=== PATIENT | male | born 1950 | race African-American/Black ===

== ENCOUNTER 2019-12-31 12:04 | Inpatient (IN) | payer SELFPAY ==
[~2019-12-31] VITALS: Ht 167.6 cm; Wt 63.2 kg
[2019-12-31] MEDS ORDERED: LEVETIRACETAM 1000MG/100ML 100 ML IV ONE (12:15)
[2019-12-31 12:25] LABS: HEMATOCRIT. 41.8 % (42.0-52.0); HEMOGLOBIN. 13.8 g/dL (14.0-18.0); MEAN CORPUSCULAR HEMOGLOBIN 34.4 pg (28.0-32.0); MEAN PLATELET VOLUME 9.8 fl (7.4-10.4); PLATELET 143 x1000/uL (130-400); RED BLOOD CELL COUNT 4.02 mill/uL (4.7-6.1); RED CELL DISTRIBUTION WIDTH 13.2 % (11.6-14.6)
[2019-12-31 12:33] LABS: CHLORIDE 102 mEq/L (98-107)
[2019-12-31 12:38] LABS: ETHANOL BLOOD < 10 mg/dL
[2019-12-31 12:42] LABS: CREATINE KINASE 396 IU/L (39-308); PLATELET ESTIMATE NORMAL
[2019-12-31] MEDS ORDERED: LORAZEPAM 2MG/ML CPJ ONE (12:56)
[2019-12-31 12:58] LABS: CARBAMAZEPINE < 0.5 ug/mL (4-12); PHENOBARBITAL < 2.1 ug/mL (15.0-40.0); VALPROIC ACID < 3.0 ug/mL (50-100)
[2019-12-31 13:57] LABS: CLARITY URINE CLEAR (CLEAR); COLOR URINE YELLOW (YELLOW); KETONES URINE NEGATIVE (NEGATIVE); LEUKOCYTE ESTERASE URINE NEGATIVE (NEGATIVE); NITRITE URINE NEGATIVE (NEGATIVE); OCCULT BLOOD URINE TRACE (NEGATIVE); PH URINE 5.5 (4.5-8.0); PROTEIN URINE 1+ (NEGATIVE); SPECIFIC GRAVITY URINE 1.031 (1.005-1.030); UROBILINOGEN URINE 0.2 E.U./dL (0.2-1.0)
[2019-12-31] MEDS ORDERED: IOHEXOL-350 100 ML BOTTLE ONE (13:58)
[2019-12-31 14:11] LABS: *AMPHETAMINES SCREEN URINE NEGATIVE (NEGATIVE)
[2019-12-31 14:12] LABS: *BARBITURATES SCREEN URINE NEGATIVE (NEGATIVE); *BENZODIAZEPINES SCREEN URINE PRESUMTIVE POSITIVE (NEGATIVE); *COCAINE SCREEN URINE NEGATIVE (NEGATIVE); CANNABINOID URINE SCREEN NEGATIVE (NEGATIVE); METHADONE URINE SCREEN NEGATIVE (NEGATIVE); OPIATES URINE SCREEN NEGATIVE (NEGATIVE); PHENCYCLIDINE URINE SCREEN NEGATIVE (NEGATIVE)
[2019-12-31] MEDS ORDERED: LORAZEPAM 2MG/ML CPJ IV ONE (14:30)
[2019-12-31] MEDS ORDERED: HYDRALAZINE 20MG/ML VIAL IV SCH (15:15)
[2019-12-31] MEDS ORDERED: NALOXONE HCL 1 MG/ML 2ML VIAL IV SCH (15:15)
[2019-12-31] MEDS ORDERED: LORAZEPAM 2MG/ML CPJ IV PRN (20:45)
[2019-12-31 21:00] VITALS: BP 150/83
[2019-12-31 21:30] VITALS: BP 150/83
[2019-12-31] MEDS ORDERED: GUAIFENESIN 200MG/10ML SUGAR FREE UDC PO PRN (22:00)
[2019-12-31] MEDS ORDERED: IPRATROPIUM/ALBUTEROL 0.5-3(2.5)MG/3ML NEB HHN PRN (22:00)
[2019-12-31] MEDS ORDERED: HYDRALAZINE 20MG/ML VIAL IV PRN (22:00)
[2019-12-31] MEDS ORDERED: MORPHINE SULFATE 2 MG/ML CPJ (NOT FOR IM USE) IV PRN (22:00)
[2019-12-31] MEDS ORDERED: DIPHENHYDRAMINE 50MG/ML VIAL IV PRN (22:00)
[2019-12-31] MEDS ORDERED: ONDANSETRON HCL 4MG/2ML INJ IV PRN (22:00)
[2019-12-31] MEDS ORDERED: DOCUSATE SODIUM 100MG CAPSULE PO PRN (22:00)
[2019-12-31] MEDS ORDERED: HYDROCODONE/ACETAMINOPHEN 10/325MG TABLET PO PRN (22:00)
[2019-12-31] MEDS ORDERED: CLONIDINE 0.1MG TABLET PO PRN (22:00)
[2019-12-31] MEDS ORDERED: ACETAMINOPHEN 325MG TABLET PO PRN (22:00)
[2019-12-31] MEDS ORDERED: MAGNESIUM/ALUMINUM HYDROXIDE/SIMETHICONE 30ML UDC PO PRN (22:00)
[2019-12-31] MEDS: SODIUM CHLORIDE 0.45% 1,000 ML IV SCH (22:37)
[2019-12-31] MEDS: SODIUM CHLORIDE 0.9% INJ 3ML FLUSH IVF SCH (22:37)
[2019-12-31] MEDS: LEVETIRACETAM 500MG PREMIX 100 ML IV SCH (23:58)
[2020-01-01] VITALS: BP 144/78
[2020-01-01] MEDS: LORAZEPAM 2MG/ML CPJ IV PRN ×2 (00:43→06:19)
[2020-01-01 04:00] VITALS: BP 154/84
[2020-01-01] MEDS: SODIUM CHLORIDE 0.9% INJ 3ML FLUSH IVF SCH ×2 (06:19→14:00)
[2020-01-01 07:15] LABS: BASOPHILS % 0.4 % (0.0-2.0); EOSINOPHILS % 0.1 % (0.0-5.0); HEMATOCRIT. 39.8 % (42.0-52.0); HEMOGLOBIN. 13.5 g/dL (14.0-18.0); LYMPHOCYTES % 9.7 % (20.0-50.0); MEAN CORPUSCULAR HEMOGLOBIN 34.4 pg (28.0-32.0); MEAN CORPUSCULAR VOLUME 101.7 fL (80.0-94.0); MEAN PLATELET VOLUME 9.2 fl (7.4-10.4); MONOCYTES % 6.6 % (2.0-8.0); NEUTROPHILS % 83.2 % (40.0-76.0); PLATELET 134 x1000/uL (130-400); RED BLOOD CELL COUNT 3.91 mill/uL (4.7-6.1); RED CELL DISTRIBUTION WIDTH 13.3 % (11.6-14.6)
[2020-01-01 07:28] LABS: CHLORIDE 104 mEq/L (98-107)
[2020-01-01 08:00] VITALS: BP 120/71
[2020-01-01] MEDS: LEVETIRACETAM 500MG PREMIX 100 ML IV SCH (09:00)
[2020-01-01] MEDS: ENOXAPARIN 40MG/0.4ML SYR SUBCUT SCH (09:00)
[2020-01-01] MEDS: HALOPERIDOL LACTATE 5MG/ML VIAL IM PRN ×2 (09:20→19:54)
[2020-01-01 12:00] VITALS: BP 142/86
[2020-01-01] MEDS: SODIUM CHLORIDE 0.45% 1,000 ML IV SCH (14:31)
[2020-01-01 16:00] VITALS: BP 137/76
[2020-01-01 20:00] VITALS: BP 147/81
[2020-01-01] MEDS: LEVETIRACETAM 500MG TABLET PO SCH (20:03)
[2020-01-02] VITALS: BP 170/82
[2020-01-02 04:00] VITALS: BP 169/83
[2020-01-02] MEDS: HALOPERIDOL LACTATE 5MG/ML VIAL IM PRN (05:57)
[2020-01-02 08:00] VITALS: BP 123/59
[2020-01-02] MEDS: LEVETIRACETAM 500MG TABLET PO SCH ×2 (08:33→20:33)
[2020-01-02] MEDS: ENOXAPARIN 40MG/0.4ML SYR SUBCUT SCH (08:34)
[2020-01-02] MEDS: SODIUM CHLORIDE 0.45% 1,000 ML IV SCH (11:03)
[2020-01-02 12:00] VITALS: BP 131/65
[2020-01-02 16:00] VITALS: BP 130/75
[2020-01-02 20:00] VITALS: BP 119/66
[2020-01-02] MEDS: AMLODIPINE 5MG TABLET PO SCH (20:33)
[2020-01-02] MEDS: SODIUM CHLORIDE 0.9% INJ 3ML FLUSH IVF SCH (20:37)
[2020-01-03] VITALS: BP 132/73
[2020-01-03 04:00] VITALS: BP 136/79
[2020-01-03] MEDS: SODIUM CHLORIDE 0.9% INJ 3ML FLUSH IVF SCH ×2 (06:00→14:37)
[2020-01-03] MEDS: SODIUM CHLORIDE 0.45% 1,000 ML IV SCH ×2 (06:40→17:43)
[2020-01-03 07:09] LABS: VITAMIN B12 SERUM 302 pg/mL (211-911)
[2020-01-03 08:00] VITALS: BP 122/63
[2020-01-03] MEDS: ENOXAPARIN 40MG/0.4ML SYR SUBCUT SCH (08:28)
[2020-01-03] MEDS: LEVETIRACETAM 500MG TABLET PO SCH ×2 (08:28→20:15)
[2020-01-03] MEDS: AMLODIPINE 5MG TABLET PO SCH ×2 (08:28→20:15)
[2020-01-03 12:00] VITALS: BP 121/69
[2020-01-03 16:16] VITALS: BP 129/55
[2020-01-03 20:00] VITALS: BP 138/77
[2020-01-04] VITALS: BP 142/79
[2020-01-04 04:00] VITALS: BP 136/71
[2020-01-04 08:00] VITALS: BP 126/58
[2020-01-04] MEDS: SODIUM CHLORIDE 0.9% INJ 3ML FLUSH IVF SCH ×2 (08:49→08:54)
[2020-01-04] MEDS: ENOXAPARIN 40MG/0.4ML SYR SUBCUT SCH (08:50)
[2020-01-04] MEDS: LEVETIRACETAM 500MG TABLET PO SCH (08:50)
[2020-01-04] MEDS: AMLODIPINE 5MG TABLET PO SCH (08:54)
[2020-01-04 12:00] VITALS: BP 132/73
[2020-01-04] MEDS: SODIUM CHLORIDE 0.45% 1,000 ML IV SCH (12:05)
[2020-01-04 13:37] VITALS: BP 132/73
[2020-01-04 16:00] VITALS: BP 152/75
== END 2020-01-04 18:16 | disposition home or self-care (01) | DRG 53 ==
LOC: EDBD 12:04 → ER 12:04 → 5WST 16:07 → ENRESERV 19:38
PROVIDERS: ADMIT Internal Medicine; ATTEND Internal Medicine
PROC: 4A00X4Z Measurement of Central Nervous Electrical Activity, External Approach (ICD-10-PCS; principal; 2020-01-03)
DX: G40.909 Epilepsy, unspecified, not intractable, without status epilepticus (principal); I67.4 Hypertensive encephalopathy; I10 Essential (primary) hypertension; I16.0 Hypertensive urgency; R73.9 Hyperglycemia, unspecified; Z79.899 Other long term (current) drug therapy; Z91.19 Patient's noncompliance with other medical treatment and regimen
CPT/HCPCS: 36415; 70496; 70498; 71045; 80053; 80061; 80156; 80165; 80184; 80185; 80305; 80320; 81003; 82550; 82607; 82962; 83036; 83880; 84443; 84484; 85025; 93005; 93306; 96365; 99285; J0360; J1200; J1630; J1650; J1953; J2060; J2310; Q9967; G0480